=== PATIENT | female | born 1970 | race Caucasian/White ===

== ENCOUNTER → 2016-12-04 | Outpatient (CLI) | payer BC ==
--- NOTE | 2016-12-04 21:24 | CONS ---
CONSULTATION DATE OF SERVICE: 12/04/2016 A 46-year-old lady has been evaluated in the sleep center for possible obstructive sleep apnea-hypopnea syndrome. HISTORY OF PRESENT ILLNESS, SLEEP-WAKE EVALUATION: Patient's usual sleep schedule on working days from 9:30 p.m. to 6:00 a.m., on weekends from around 10:00 p.m. until 6:00 a.m., 6:30 a.m. No problems with falling asleep, although currently she is watching TV in bedroom. She sleeps in different position. She may wake up from sleep with dry mouth and she knows that she sleeps with open mouth. She snores, may wake up from sleep with headaches occasionally. In the morning she wakes up tired, has problems with concentration, irritability, anxiety, sexual dysfunction. [place] Sleepiness Scale is 5. PAST MEDICAL HISTORY: Positive for headaches usually on the back of the head, iron deficiency after lap-band surgery. PAST SURGICAL HISTORY: Cholecystectomy, panniculectomy, lap-band surgery in 2002. REVIEW OF SYSTEMS: After lap band surgery, patient lost about 120 pounds, but then gained again about 40 pounds. Total change of weight down about 80 pounds. Awakenings from sleep, sometimes tiredness during the day. Sometimes she may take naps on the weekend. MEDICATIONS: 1. Pamelor. 2. Out of counter iron supplement. SOCIAL HISTORY: Negative for smoking. Alcohol consumption rarely. FAMILY HISTORY: Hypertension, heart problems, diabetes, anemia, mental illness. PHYSICAL EXAMINATION: GENERAL: A 46-year-old lady without distress VITAL SIGNS: BP 126/91, HR 110, respirations 16, height 5 feet 8 inches, weight 190, BMI 28.8. Neck 14-3/4 inches in circumference, temperature 97.1, oxygen saturation at room air 99%. HEENT: PERRLA, EOMI, evaluation of oropharynx showed tongue protrudes midline, retrognathia about 5 mm, big tonsils. Slight restriction of nasal breathing. NECK: Supple, no JVD. Thyroid is not palpable. LUNGS: Clear to percussion and to auscultation. Good air exchange. No wheezing or rhonchi. HEART: S1, S2 regular. No murmurs, gallops, or rubs. ABDOMEN: slightly obese, soft and nontender. Bowel sounds are present. No organomegaly appreciated. EXTREMITIES: No clubbing or cyanosis. CHANGE ADVISOR: Awake, alert, and oriented X3. Cranial nerves 2 to 7 intact. There is no fasciculation or atrophy. noted. No focal deficits observed. IMPRESSION: 1. Snoring, awakenings from sleep, big tonsils, some restriction of nasal breathing, obstructive sleep apnea-hypopnea syndrome. 2. Headaches. 3. Status post lap-band surgery with total losing about 80 pounds of weight. 4. Iron deficiency. 5. Status post cholecystectomy. 6. Status post panniculectomy. PLAN: 1. Polysomnography for evaluation of patient's breathing during sleep. 2. CPAP/BiPAP titration if sleep study confirms obstructive sleep apnea-hypopnea syndrome. 3. Preferable position during sleep on the side. 4. No driving if patient feels any sleepiness. Patient is aware of civil and criminal liability for unsafe driving. 5. I will see patient for follow up visit to explain results of testing and following plan. 6. Thank you very much for referring this patient for consultation. Sincerely, Lorenzo Morrison MD, PhD, FAASM Diplomat of [employer] Social Work Specialist of [facility] [place] MMODL / IJN: [id number] /
== END | disposition home or self-care (01) ==
LOC: SLEEP 16:27
PROVIDERS: ATTEND Internal Medicine
DX: G47.33 Obstructive sleep apnea (adult) (pediatric) (principal); E61.1 Iron deficiency; Z90.49 Acquired absence of other specified parts of digestive tract; Z98.84 Bariatric surgery status; Z79.899 Other long term (current) drug therapy; Z98.890 Other specified postprocedural states

== ENCOUNTER → 2023-01-17 | Outpatient (CLI) | payer OTHER ==
--- NOTE | 2023-01-18 11:50 | MR ---
EXAMINATION TYPE: MR abdomen wo/w con DATE OF EXAM: 01/17/2023 10:00 AM CLINICAL INDICATION:Female, 52 years old with history of C18.7 MALIGNANT NEOPLASM OF SIGMOID COLON; P HH, Colon Cancer, Tumor removed from colon 2022 COMPARISON: CT 11/28/2022 and 11/10/2022 Pet/CT 12/31/2022 at [facility] TECHNIQUE: Multiplanar multi-sequence imaging was performed without contrast. Post contrast imaging was performed. Post IV contrast subtraction images were also submitted for review. IV Contrast: 7 cc Gadobutrol FINDINGS: LOWER CHEST: Visualized right chest wall susceptibility artifact in the left anterior abdominal wall artifact. ABDOMEN Liver: Respiratory motion limits evaluation. When comparing to prior PET/CT the area within the cauda te lobe within the liver of increased radiotracer uptake present family correlate with lesion on an i maging. There are other lesions scattered throughout the liver. Lesions may have have subtle uptake. Scattered lesions are seen throughout the liver at least 5 up to 12 mm and right hepatic lobe and up tor 10 mm in the left hepatic lobe. These are intermediate to high T2 signal and demonstrate peripher al enhancement on postcontrast imaging. Gallbladder and Bile ducts: No evidence for ductal dilation, or biliary stricture or evidence of chol edocholithiasis. The gallbladder is within normal limits. Pancreas: No ductal dilation. No evidence for solid mass. Spleen: Normal for size. Adrenal glands: Unremarkable. Kidneys: No evidence for obstructive uropathy. No suspicious renal masses. Stomach and Bowel: No evidence for bowel wall thickening or evidence for obstruction. Gastric lap ban d is present. Peritoneum: No evidence of pneumoperitoneum. There is loculated fluid collection the right abdomen p osterior to the colon that extends towards the liver measuring 6.0 x 2.8 x 7.0 cm. Vasculature: No aortic aneurysm. Musculoskeletal: The osseous structures appear intact. Lymph Nodes: No gross evidence for lymphadenopathy. Abdominal wall: Postsurgical changes to the anterior abdominal wall in the left colostomy. IMPRESSION: 1. Multiple lesions are seen throughout the liver suspicious for metastatic disease in the setting o f malignancy. These lesions are not appreciated on prior CT imaging 11/28/2022 and 11/10/2022. These m ay have been faintly metabolically active compared to background liver. Areas along the right liver d ome and near the caudate lobe favored represent focal inflammation from fluid collection in the right paracolic gutter possibly relating to infected seroma/abscess along the liver capsule with misregist ration due to respiratory motion. 2. There is postsurgical change with colostomy present. 3. Organizing fluid collection along the right paracolic gutter could represent postop seroma given patient's history of surgery. Correlate for signs and symptoms of infection to rule out underlying ab scess.
== END | disposition home or self-care (01) ==
LOC: RADMRIMAIN 08:41
PROVIDERS: ATTEND Internal Medicine Hematology & Oncology
DX: C18.7 Malignant neoplasm of sigmoid colon (principal); K76.89 Other specified diseases of liver; K66.8 Other specified disorders of peritoneum; Z93.3 Colostomy status
CPT/HCPCS: 74183; A9585

== ENCOUNTER 2023-02-10 22:06 | Inpatient (IN) | payer OTHER ==
--- NOTE | 2023-02-10 22:57 | ED ---
Fever HPI - General Source: patient Mode of arrival: ambulatory Limitations: no limitations <Gagan Marques - Last Filed: 02/10/23 22:57> <Mehrdad Humphrey - Last Filed: 02/11/23 03:18> - General Chief Complaint: Fever Stated Complaint: Fever-chemo Time Seen by Provider: 02/10/23 22:56 - History of Present Illness Initial Comments: 52-year-old female with a past medical history significant for colon cancer on chemotherapy presenting to the ED with a chief complaint of fever. (Gagan Marques) 52-year-old female currently undergoing chemotherapy for colon cancer presents with fever which began today. Patient is on a continuous IV infusion of chemotherapy. She has contacted the oncologist who recommended she present to the emergency department. No upper respiratory symptoms. No urinary symptoms. No pain complaints. (Mehrdad Humphrey) - Related Data Allergies Allergy/AdvReac Type Severity Reaction Status Date / Time Penicillins Allergy Unknown Verified 02/10/23 22:16 amoxicillin AdvReac Unknown Verified 02/10/23 22:16 Review of Systems ROS Other: All systems not noted in ROS Statement are negative. <Gagan Marques - Last Filed: 02/10/23 22:57> ROS Other: All systems not noted in ROS Statement are negative. <Mehrdad Humphrey - Last Filed: 02/11/23 03:18> ROS Statement: Those systems with pertinent positive or pertinent negative responses have been documented in the HPI. Past Medical History Additional Past Medical History / Comment(s): cholosstomy, colon cancer <Gagan Marques - Last Filed: 02/10/23 22:57> General Exam Limitations: no limitations <Gagan Marques - Last Filed: 02/10/23 22:57> General appearance: alert, in no apparent distress Head exam: Present: atraumatic, normocephalic Eye exam: Present: normal appearance, PERRL ENT exam: Present: normal exam Neck exam: Present: normal inspection. Absent: tenderness, meningismus Respiratory exam: Present: normal lung sounds bilaterally. Absent: respiratory distress, wheezes Cardiovascular Exam: Present: normal rhythm, tachycardia GI/Abdominal exam: Present: soft. Absent: distended, tenderness Neurological exam: Present: alert, oriented X3, CN II-XII intact. Absent: motor sensory deficit Psychiatric exam: Present: normal affect, normal mood Skin exam: Present: warm, dry, intact. Absent: cyanosis, diaphoretic <Mehrdad Humphrey - Last Filed: 02/11/23 03:18> - General Exam Comments Initial Comments: Visual Physical Exam Vital signs reviewed General: Well-appearing, nontoxic, no acute distress. Head: Normocephalic, atraumatic Eyes: PERRLA, EOMI ENT: Airway patent Chest: Nonlabored breathing Skin: No visual rash, normal skin tone Neuro: Alert and oriented 3 Musculoskeletal: No gross abnormalities (Gagan Marques) Course Vital Signs 02/10/23 02/10/23 02/10/23 22:13 23:50 23:56 Temperature 100.3 F H 99.2 F Pulse Rate 139 H 118 H Respiratory 22 18 Rate Blood Pressure 137/83 154/77 O2 Sat by Pulse 93 L 97 Oximetry 02/11/23 01:13 Temperature Pulse Rate 99 Respiratory 18 Rate Blood Pressure 115/82 O2 Sat by Pulse 97 Oximetry Medical Decision Making <Gagan Marques - Last Filed: 02/10/23 22:57> - Lab Data Result diagrams: 02/10/23 23:11 02/10/23 23:11 <Mehrdad Humphrey - Last Filed: 02/11/23 03:18> - Medical Decision Making Quicknote portion performed. Signed Gagan Marques PA-C (Gagan Marques) Was pt. sent in by a medical professional or institution ([facility] Lee, UI DEVELOPER [employer], urgent care, hospital, or snf...) When possible be specific @ -Sent in by oncologist for evaluation of fever. Did you speak to anyone other than the patient for history (EMS, parent, family, police, friend...)? What history was obtained from this source @ -No Did you review nursing and triage notes (agree or disagree)? Why? @ -I reviewed and agree with nursing and triage notes Were old charts reviewed (outside hosp., previous admission, EMS record, old EKG, old radiological studies, urgent care reports/EKG's, snf records)? Report findings @ -No old charts were reviewed Differential Diagnosis (chest pain, altered mental status, abdominal pain women, abdominal pain men, vaginal bleeding, weakness, fever, dyspnea, syncope, headache, dizziness, GI bleed, back pain, seizure, CVA, palpatations, mental health, musculoskeletal)? @ -Differential Fever: Pneumonia, viral URI, endocarditis, myocarditis, pericarditis, otitis, sinusitis, peritonsillar Abscess, retropharyngeal Abscess, epiglottitis, peritonitis, appendicitis, Ruth cystitis, diverticulitis, hepatitis, colitis, UTI, PID, TOA, pyelonephritis, prostatitis, epididymitis, meningitis, encephali tis, pulmonary embolism, CVA, thyroid storm, pancreatitis, adrenal crisis, cavernous sinus thrombosis, this is not meant to be an all-inclusive list. EKG interpreted by me (3pts min.). @ -As above X-rays interpreted by me (1pt min.). @ -[Chest x-ray shows right sided effusion, possible atelectasis or developing pneumonia CT interpreted by me (1pt min.). @ -None done U/S interpreted by me (1pt. min.). @ -None done What testing was considered but not performed or refused? (CT, X-rays, U/S, labs)? Why? @ -None What meds were considered but not given or refused? Why? @ -None Did you discuss the management of the patient with other professionals (professionals i.e. , PA, UI DEVELOPER [employer], lab, RT, psych nurse, criminal justice social worker, group art supervisor, teacher, chief diversity officer, case management coordinator)? Give summary @ -EMH Was smoking cessation discussed for >3mins.? @ -No Was critical care preformed (if so, how long)? @ -No Were there social determinants of health that impacted care today? How? (Homelessness, low income, unemployed, alcoholism, drug addiction, transportation, low edu. Level, literacy, decrease access to med. care, group home, rehab)? @ -No Was there de-escalation of care discussed even if they declined (Discuss DNR or withdrawal of care, Hospice)? DNR status @ -No What co-morbidities impacted this encounter? (DM, HTN, Smoking, COPD, CAD, Cancer, CVA, ARF, Chemo, Hep., AIDS, mental health diagnosis, sleep apnea, morbid obesity)? @ -[On chemotherapy for colon cancer. Was patient admitted / discharged? Hospital course, mention meds given and route, prescriptions, significant lab abnormalities, going to OR and other per tinent info. @ -[22-year-old female on chemo for colon cancer presenting with fever. Patient does have mild dyspnea but denies cough. Chest x-ray shows concern for right-sided pleural effusion this may be parapneumonic. She has normal white blood cell count without neutropenia. Viral panel is negative, urinalysis is negative. She has a lactic acid which is elevated this is treated with IV fluid. She started on broad-spectrum antibiotics and she is admitted with oncology on consult. Patient does have a mild transaminitis but does not have any abdominal pain or tenderness. Undiagnosed new problem with uncertain prognosis? @ -No Drug Therapy requiring intensive monitoring for toxicity (Heparin, Nitro, Insulin, Cardizem)? @ -No Were any procedures done? @ -No Diagnosis/symptom? @ -[Fever, pneumonia Acute, or Chronic, or Acute on Chronic? @ -[acute Uncomplicated (without systemic symptoms) or Complicated (systemic symptoms)? @ -[complicated Side effects of treatment? @ -No Exacerbation, Progression, or Severe Exacerbation? @ -No Poses a threat to life or bodily function? How? (Chest pain, [place], [place], pneumonia, PE, COPD, DKA, ARF, appy, cholecystitis, CVA, Diverticulitis, Homicidal, Suicidal, threat to staff... and all critical care pts) @ -[yes, sepsis (Mehrdad Humphrey) - Lab Data Lab Results 02/10/23 02/10/23 02/10/23 Range/Units 23:11 23:11 23:11 WBC 4.7 (3.8-10.6) k/uL RBC 4.36 (3.80-5.40) m/uL Hgb 12.2 (11.4-16.0) gm/dL Hct 37.7 (34.0-46.0) % MCV 86.4 (80.0-100.0) fL MCH 27.9 (25.0-35.0) pg MCHC 32.3 (31.0-37.0) g/dL RDW 16.1 H (11.5-15.5) % Plt Count 205 (150-450) k/uL MPV 8.2 Neutrophils % 89 % Lymphocytes % 4 % Monocytes % 5 % Eosinophils % 1 % Basophils % 0 % Neutrophils # 4.1 (1.3-7.7) k/uL Lymphocytes # 0.2 L (1.0-4.8) k/uL Monocytes # 0.2 (0-1.0) k/uL Eosinophils # 0.1 (0-0.7) k/uL Basophils # 0.0 (0-0.2) k/uL Hypochromasia Slight Anisocytosis Slight PT 10.5 (10.0-12.5) sec INR 0.9 (<1.2) APTT 22.0 (22.0-30.0) sec Sodium (137-145) mmol/L Potassium (3.5-5.1) mmol/L Chloride (98-107) mmol/L Carbon Dioxide (22-30) mmol/L Anion Gap mmol/L BUN (7-17) mg/dL Creatinine (0.52-1.04) mg/dL Est GFR (CKD-EPI)AfAm (>60 ml/min/1.73 sqM) Est GFR (CKD-EPI)NonAf (>60 ml/min/1.73 sqM) Glucose (74-99) mg/dL Lactic Ac Sepsis Rflx Plasma Lactic Acid Triston (0.7-2.0) mmol/L Calcium (8.4-10.2) mg/dL Magnesium (1.6-2.3) mg/dL Total Bilirubin (0.2-1.3) mg/dL AST (14-36) U/L ALT (4-34) U/L Alkaline Phosphatase (38-126) U/L Total Protein (6.3-8.2) g/dL Albumin (3.5-5.0) g/dL Urine Color Light Yellow Urine Appearance Clear (Clear) Urine pH 5.5 (5.0-8.0) Ur Specific [place] 1.015 (1.001-1.035) Urine Protein Negative (Negative) Urine Glucose (UA) Negative (Negative) Urine Ketones Negative (Negative) Urine Blood Negative (Negative) Urine Nitrite Negative (Negative) Urine Bilirubin Negative (Negative) Urine Urobilinogen <2.0 (<2.0) mg/dL Ur Leukocyte Esterase Negative (Negative) Influenza Type A (PCR) (Not Detectd) Influenza Type B (PCR) (Not Detectd) RSV (PCR) (Not Detectd) SARS-CoV-2 (PCR) (Not Detectd) 02/10/23 02/10/23 02/10/23 Range/Units 23:11 23:11 23:11 WBC (3.8-10.6) k/uL RBC (3.80-5.40) m/uL Hgb (11.4-16.0) gm/dL Hct (34.0-46.0) % MCV (80.0-100.0) fL MCH (25.0-35.0) pg MCHC (31.0-37.0) g/dL RDW (11.5-15.5) % Plt Count (150-450) k/uL MPV Neutrophils % % Lymphocytes % % Monocytes % % Eosinophils % % Basophils % % Neutrophils # (1.3-7.7) k/uL Lymphocytes # (1.0-4.8) k/uL Monocytes # (0-1.0) k/uL Eosinophils # (0-0.7) k/uL Basophils # (0-0.2) k/uL Hypochromasia Anisocytosis PT (10.0-12.5) sec INR (<1.2) APTT (22.0-30.0) sec Sodium 136 L (137-145) mmol/L Potassium 4.5 (3.5-5.1) mmol/L Chloride 104 (98-107) mmol/L Carbon Dioxide 18 L (22-30) mmol/L Anion Gap 14 mmol/L BUN 14 (7-17) mg/dL Creatinine 0.71 (0.52-1.04) mg/dL Est GFR (CKD-EPI)AfAm >90 (>60 ml/min/1.73 sqM) Est GFR (CKD-EPI)NonAf >90 (>60 ml/min/1.73 sqM) Glucose 190 H (74-99) mg/dL Lactic Ac Sepsis Rflx Plasma Lactic Acid Triston 3.4 H* (0.7-2.0) mmol/L Calcium 9.8 (8.4-10.2) mg/dL Magnesium 1.7 (1.6-2.3) mg/dL Total Bilirubin 0.4 (0.2-1.3) mg/dL AST 262 H (14-36) U/L ALT 183 H (4-34) U/L Alkaline Phosphatase 318 H (38-126) U/L Total Protein 8.2 (6.3-8.2) g/dL Albumin 4.3 (3.5-5.0) g/dL Urine Color Urine Appearance (Clear) Urine pH (5.0-8.0) Ur Specific [place] (1.001-1.035) Urine Protein (Negative) Urine Glucose (UA) (Negative) Urine Ketones (Negative) Urine Blood (Negative) Urine Nitrite (Negative) Urine Bilirubin (Negative) Urine Urobilinogen (<2.0) mg/dL Ur Leukocyte Esterase (Negative) Influenza Type A (PCR) Not Detected (Not Detectd) Influenza Type B (PCR) Not Detected (Not Detectd) RSV (PCR) Not Detected (Not Detectd) SARS-CoV-2 (PCR) Not Detected (Not Detectd) 02/11/23 Range/Units 00:08 WBC (3.8-10.6) k/uL RBC (3.80-5.40) m/uL Hgb (11.4-16.0) gm/dL Hct (34.0-46.0) % MCV (80.0-100.0) fL MCH (25.0-35.0) pg MCHC (31.0-37.0) g/dL RDW (11.5-15.5) % Plt Count (150-450) k/uL MPV Neutrophils % % Lymphocytes % % Monocytes % % Eosinophils % % Basophils % % Neutrophils # (1.3-7.7) k/uL Lymphocytes # (1.0-4.8) k/uL Monocytes # (0-1.0) k/uL Eosinophils # (0-0.7) k/uL Basophils # (0-0.2) k/uL Hypochromasia Anisocytosis PT (10.0-12.5) sec INR (<1.2) APTT (22.0-30.0) sec Sodium (137-145) mmol/L Potassium (3.5-5.1) mmol/L Chloride (98-107) mmol/L Carbon Dioxide (22-30) mmol/L Anion Gap mmol/L BUN (7-17) mg/dL Creatinine (0.52-1.04) mg/dL Est GFR (CKD-EPI)AfAm (>60 ml/min/1.73 sqM) Est GFR (CKD-EPI)NonAf (>60 ml/min/1.73 sqM) Glucose (74-99) mg/dL Lactic Ac Sepsis Rflx Y Plasma Lactic Acid [place]iston (0.7-2.0) mmol/L Calcium (8.4-10.2) mg/dL Magnesium (1.6-2.3) mg/dL Total Bilirubin (0.2-1.3) mg/dL AST (14-36) U/L ALT (4-34) U/L Alkaline Phosphatase (38-126) U/L Total Protein (6.3-8.2) g/dL Albumin (3.5-5.0) g/dL Urine Color Urine Appearance (Clear) Urine pH (5.0-8.0) Ur Specific [place] (1.001-1.035) Urine Protein (Negative) Urine Glucose (UA) (Negative) Urine Ketones (Negative) Urine Blood (Negative) Urine Nitrite (Negative) Urine Bilirubin (Negative) Urine Urobilinogen (<2.0) mg/dL Ur Leukocyte Esterase (Negative) Influenza Type A (PCR) (Not Detectd) Influenza Type B (PCR) (Not Detectd) RSV (PCR) (Not Detectd) SARS-CoV-2 (PCR) (Not Detectd) Disposition <Gagan Marques - Last Filed: 02/10/23 22:57> Is patient prescribed a controlled substance at d/c from ED?: No Time of Disposition: 03:17 <Mehrdad Humphrey - Last Filed: 02/11/23 03:18> Clinical Impression: Fever, Pneumonia Disposition: ADMITTED IP TO THIS HOSP Condition: Stable Referrals: Leon Mccormick [REFERRING] - 1-2 days
[2023-02-10] MEDS ORDERED: SODIUM CHLORIDE 0.9% 1,000 ML IV ONE (23:15)
[2023-02-10] MEDS ORDERED: ACETAMINOPHEN TAB 500 MG TAB PO STA (23:15)
[2023-02-10 23:30] LABS: Anisocytosis Slight; Basophils % (A) 0 %; Eosinophils # (A) 0.1 k/uL (0-0.7); Eosinophils % (A) 1 %; HCT 37.7 % (34.0-46.0); HGB 12.2 gm/dL (11.4-16.0); Hypochromasia Slight; Lymphocytes # (A) 0.2 k/uL (1.0-4.8); Lymphocytes % (A) 4 %; MCH 27.9 pg (25.0-35.0); MCHC 32.3 g/dL (31.0-37.0); MCV 86.4 fL (80.0-100.0); Mean Platelet Volume 8.2; Monocytes # (A) 0.2 k/uL (0-1.0); Monocytes % (A) 5 %; Neutrophils # (A) 4.1 k/uL (1.3-7.7); Neutrophils % (A) 89 %; Platelet Count 205 k/uL (150-450); RBC 4.36 m/uL (3.80-5.40); RDW 16.1 % (11.5-15.5); WBC 4.7 k/uL (3.8-10.6)
[2023-02-10 23:47] LABS: INR 0.9 (<1.2); Prothrombin Time 10.5 sec (10.0-12.5)
[2023-02-10 23:58] LABS: ALT 183 U/L (4-34); AST 262 U/L (14-36); African American GFR (CKD) >90 (>60 ml/min/1.73 sqM); Albumin 4.3 g/dL (3.5-5.0); Alkaline Phosphatase 318 U/L (38-126); Anion Gap 14 mmol/L; Blood Urea Nitrogen 14 mg/dL (7-17); Calcium 9.8 mg/dL (8.4-10.2); Carbon Dioxide 18 mmol/L (22-30); Chloride 104 mmol/L (98-107); Glucose 190 mg/dL (74-99); Magnesium 1.7 mg/dL (1.6-2.3); Non-African American GFR(CKD) >90 (>60 ml/min/1.73 sqM); Potassium 4.5 mmol/L (3.5-5.1); Sodium 136 mmol/L (137-145); Total Bilirubin 0.4 mg/dL (0.2-1.3); Total Protein 8.2 g/dL (6.3-8.2)
[2023-02-11 01:17] LABS: Appearance,Urine Clear (Clear); Bilirubin,Urine Negative (Negative); Blood,Urine Negative (Negative); Color,Urine Light Yellow; Glucose,Urine (UA) Negative (Negative); Ketones,Urine Negative (Negative); Leukocyte Esterase,Urine Negative (Negative); Nitrite,Urine Negative (Negative); PH, Urine 5.5 (5.0-8.0); Protein,Urine Negative (Negative); Specific Gravity,Urine 1.015 (1.001-1.035); Urobilinogen,Urine <2.0 mg/dL (<2.0)
[2023-02-11] MEDS ORDERED: CEFEPIME 2 GM in SODIUM CHLORIDE 0.9% 100 ML IVPB STA (01:43)
[2023-02-11] MEDS ORDERED: VANCOMYCIN IV PER PHARMACY 1 EACH MISC MISCELLANE PRN (01:43)
[2023-02-11] MEDS ORDERED: CEFEPIME 2 GM in SODIUM CHLORIDE 0.9% 100 ML IVPB ONE (01:46)
[2023-02-11] MEDS ORDERED: VANCOMYCIN 1,500 MG in SODIUM CHLORIDE 0.9% 500 ML 500 ML IVPB ONE (02:30)
--- NOTE | 2023-02-11 02:56 | XR ---
EXAM: XR Chest, 2 Views CLINICAL HISTORY: ITS.REASON XR Reason: fever TECHNIQUE: Frontal and lateral views of the chest. COMPARISON: No relevant prior studies available. FINDINGS: Lungs: Subsegmental right basilar airspace opacities. Elevated diaphragms, small lung volumes. Pleural space: Trace right pleural effusion suggested. No pneumothorax. Heart: Unremarkable. No cardiomegaly. Mediastinum: Unremarkable. Normal mediastinal contour. Bones/joints: Unremarkable. No acute fracture. Tubes, lines and devices: Right catheter tip projects at the SVC. Left upper quadrant gastric band, left upper quadrant port, with relative horizontal orientation of the gastric band. Upper abdomen: Right upper quadrant surgical clips, likely from prior cholecystectomy. IMPRESSION: 1. Probable right basilar atelectasis, possible developing pneumonia or aspiration pneumonitis with trace right parapneumonic effusion. 2. Relatively horizontal orientation of the gastric band, recommend comparison to postsurgical placement, possible prolapse.
[2023-02-11] MEDS ORDERED: NALOXONE 0.4 MG/ML 1 ML VIAL IV PRN (03:12)
[2023-02-11] MEDS: SODIUM CHLORIDE 0.9% 1,000 ML IV SCH ×2 (04:32→18:29)
[2023-02-11] MEDS ORDERED: ONDANSETRON 4 MG TAB PO PRN (10:16)
[2023-02-11] MEDS: CEFEPIME 2 GM in SODIUM CHLORIDE 0.9% 100 ML IVPB SCH ×2 (10:44→18:28)
--- NOTE | 2023-02-11 10:45 | P.HPIM ---
History of Present Illness This is a pleasant 52 years old female with past medical history of colon cancer status post colon resection surgery and colostomy in the left lower back done at [facility]. Patient states that she follows up with Dr. mtz but she hasn't seen him yet. She follows up with Dr. Batista and she supposed to get her chemotherapy currently where she started developing fever yesterday. Patient thinks it was 104.1 but not sure. She denies chills but she is complaining of from shortness of breath with no coughing or chest pain No change in urine or bowel habits. No dizziness weakness or numbness. She has mild headache. She denies smoking alcohol or illicit drugs On admission Vitas looks stable, she is saturating 98% on room air, heart rate is 102 Labs including CBC, INR, BMP and urinalysis were unremarkable AST 262, ALT 183. Bilirubin normal 0.4. Chest x-ray showing right lower lobe atelectasis versus early pneumonia by r adiologist I reviewed the chest x-ray by myself on Alex. Also there was possible prolapse of the band of the stomach. Original surgery was done with Dr. Jenkins, Dr. Lawson did surgical resection of the colon last time and she helped to clean the area around the gastric band. Review of Systems Review of systems CONSTITUTIONAL: No fever, no malaise, no fatigue. HEENT: No recent visual problems or hearing problems. Denied any sore throat. CARDIOVASCULAR: No orthopnea, PND, no palpitations, no syncope. PULMONARY: no cough, no hemoptysis. GASTROINTESTINAL: No diarrhea, no nausea, no vomiting, no abdominal pain. Normoactive bowel sounds. NEUROLOGICAL: No headaches, no weakness, no numbness. HEMATOLOGICAL: Denies any bleeding or petechiae. GENITOURINARY: Denies any burning micturition, frequency, or urgency. MUSCULOSKELETAL/RHEUMATOLOGICAL: Denies any joint pain, swelling, or any muscle pain. ENDOCRINE: Denies any polyuria or polydipsia. Past Medical History Additional Past Medical History / Comment(s): cholosstomy, colon cancer Medications and Allergies Home Medications Medication Instructions Recorded Confirmed Type Acetaminophen Tab [Tylenol Tab] 1,000 mg PO Q12H 02/11/23 02/11/23 History Ondansetron [Zofran] 4 mg PO Q4H PRN 02/11/23 02/11/23 History Allergies Allergy/AdvReac Type Severity Reaction Status Date / Time amoxicillin Allergy Rash/Hives Verified 02/11/23 07:19 Penicillins Allergy Rash/Hives Verified 02/11/23 07:19 Physical Exam Vitals: Vital Signs Temp Pulse Resp BP Pulse Ox 02/11/23 06:14 103 H 16 120/80 98 02/11/23 04:53 99.1 F 102 H 18 145/89 98 02/11/23 01:13 99 18 115/82 97 02/10/23 23:56 99.2 F 02/10/23 23:50 118 H 18 154/77 97 02/10/23 22:13 100.3 F H 139 H 22 137/83 93 L Intake and Output 02/10/23 02/11/23 02/11/23 22:59 06:59 14:59 Other: Weight 72.575 kg GENERAL: The patient is alert and oriented x3, not in any acute distress. Well developed, well nourished. HEENT: Pupils are round and equally reacting to light. EOMI. No scleral icterus. No conjunctival pallor. Normocephalic, atraumatic. No pharyngeal erythema. No thyromegaly. CARDIOVASCULAR: S1 and S2 present. No murmurs, rubs, or gallops. PULMONARY: Chest is clear to auscultation, no wheezing , no crackles. ABDOMEN: Soft, nontender, nondistended, normoactive bowel sounds. No palpable organomegaly. MUSCULOSKELETAL: No joint swelling or deformity. EXTREMITIES: No cyanosis, clubbing, or pedal edema. NEUROLOGICAL: Gross neurological examination did not reveal any focal deficits. SKIN: No rashes. no petechiae. Results CBC & Chem 7: 02/10/23 23:11 02/10/23 23:11 Labs: Abnormal Lab Results - Last 24 Hours (Table) 02/10/23 02/10/23 02/10/23 Range/Units 23:11 23:11 23:11 RDW 16.1 H (11.5-15.5) % Lymphocytes # 0.2 L (1.0-4.8) k/uL Sodium 136 L (137-145) mmol/L Carbon Dioxide 18 L (22-30) mmol/L Glucose 190 H (74-99) mg/dL Plasma Lactic Acid Triston 3.4 H* (0.7-2.0) mmol/L AST 262 H (14-36) U/L ALT 183 H (4-34) U/L Alkaline Phosphatase 318 H (38-126) U/L Assessment and Plan Assessment: Right lower lobe pneumonia, suspected gram-negative and need to cover MRSA Colon cancer status post surgical resection on chemotherapy Mild transaminitis Possible prolapse of the gastric band Plan: Continue with antibiotics cefepime and IV vancomycin Continue with normal saline 75 mL/h 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 Labs and medication were reviewed.. Continue same treatment. Continue with symptomatic treatment. Resume home medication. Monitor labs and vitals. DVT and GI prophylaxis. Further recommendations as per clinical course of the patient DVT prophylaxis: Subcutaneous heparin GI Prophylaxis: Pepcid PT/OT: Pending Prognosis is guarded
[2023-02-11] MEDS ORDERED: VANCOMYCIN 1,500 MG in SODIUM CHLORIDE 0.9% 500 ML 500 ML IVPB SCH (15:00)
[2023-02-11] MEDS: VANCOMYCIN 1,500 MG in SODIUM CHLORIDE 0.9% 500 ML 500 ML IVPB SCH (15:56)
[2023-02-11] MEDS: FAMOTIDINE 20 MG/2 ML VIAL IV SCH (21:24)
[2023-02-11] MEDS: HEPARIN SODIUM,PORCINE 5,000 UNIT/ML 1 ML VIAL SQ SCH (21:26)
--- NOTE | 2023-02-11 22:32 | P.CONS ---
History of Present Illness - Reason for Consult Consult date: 02/11/23 colon cancer Requesting physician: Mehrdad Humphrey - Chief Complaint fever - History of Present Illness Ms Stevens is a 52 year old female with a significant history of metastatic colon adenocarcinoma. She is a patient of Dr. Batista. She was initially seen in consult at [facility] on 11/13/22. The patient had been admitted 3 weeks prior with abdominal pain, and treated for diverticulitis. She had been having lower abdominal pain for the prior 2 month with associated nausea, vomiting, as well as sweats and decreased appetite . CT scan on 10/25/22 had shown wall thickening of the mid and distal descending colon with surrounding infiltrate change, felt to reflect diverticulitis versus nonspecific colitis. Neoplasm was not felt to be excluded. the patient presented again with progression of symptoms with repeat CT scan showed evidence of obstruction distal colon mass versus stricture, with evidence of perforation. No obvious metastatic disease was noted on either CT scan. The patient was taken to surgery on 11/12/22. The obstructing mass in the sigmoid colon appear to be attached to the iliopsoas muscle and adjacent ureter, and required dissection from the same. The patient had resection of this area, replacement of an ostomy. Pathology showed a 5 cm grade 2 adenocarcinoma T3, less than 1 mm from the circumferential margin that is the serosal surface. Th ere was seated perforation with no definite tumor content. / pericolic lymph nodes were involved with tumor deposits also present. Biopsy of the mesentery did not show any obvious tumor. She was staged as pT3N2b. PET scan on 12/31/22, revealing inflammatory type uptake in the incision line, as well as uptake in a fluid collection adjacent to the liver and posterior to the uterus. There was also uptake noted in borderline lymph nodes in the retroperitoneum. These findings were felt to be more likely inflammatory. However 2 areas of uptake in the liver, and the hepatic dome, and the caudate lobe were felt to be more suspicious for possible metastasis. She was recommended systemic luis motherapy with adjuvant FOLFOX. Completing cycle 2 on 02/10/23. Patient presented to the emergency room with complaints of fever. Tmax at home was 102.4. Upon presentation temperature was 100.3. Patient was also reporting shortness of breath over the last 1 day. Denies cough. Denies nausea vomiting diarrhea. UA negative. RSV, COVID, influenza negative. Blood cultures pending. Chest x-ray suspicious for pneumonia. IV antibiotics started. CBC revealed WBC 4.7, hemoglobin 12.2, platelets 205,000. Lactic acid elevated upon admission at 3.4, now at 1.8. LFTs elevated. Bilirubin normal at 0.4. Review of Systems 10 point ROS is negative except as stated in the HPI Past Medical History Additional Past Medical History / Comment(s): cholosstomy, colon cancer Medications and Allergies Home Medications Medication Instructions Recorded Confirmed Type Acetaminophen Tab [Tylenol Tab] 1,000 mg PO Q12H 02/11/23 02/11/23 History Ondansetron [Zofran] 4 mg PO Q4H PRN 02/11/23 02/11/23 History Allergies Allergy/AdvReac Type Severity Reaction Status Date / Time amoxicillin Allergy Rash/Hives Verified 02/11/23 07:19 Penicillins Allergy Rash/Hives Verified 02/11/23 07:19 Physical Exam Vitals: Vital Signs Temp Pulse Pulse Resp BP BP Pulse Ox 02/11/23 18:05 79 18 02/11/23 18:04 98.2 F 79 18 130/80 95 02/11/23 11:25 94 18 134/77 99 02/11/23 06:14 103 H 16 120/80 98 02/11/23 04:53 99.1 F 102 H 18 145/89 98 02/11/23 01:13 99 18 115/82 97 02/10/23 23:56 99.2 F 02/10/23 23:50 118 H 18 154/77 97 02/10/23 22:13 100.3 F H 139 H 22 137/83 93 L Intake and Output 02/11/23 02/11/23 02/11/23 06:59 14:59 22:59 Other: Voiding Method Toilet - Constitutional General appearance: average body habitus, no acute distress - EENT Eyes: anicteric sclerae, EOMI ENT: hearing grossly normal - Respiratory Respiratory: right: rales (mild rales RLL) - Cardiovascular Rhythm: regular Heart sounds: normal: S1, S2 - Gastrointestinal General gastrointestinal: soft, no tenderness - Integumentary Integumentary: no cyanotic - Neurologic grossly intact - Musculoskeletal Musculoskeletal: strength equal bilaterally - Psychiatric Psychiatric: A&O x's 3 Results CBC & Chem 7: 02/10/23 23:11 02/10/23 23:11 Labs: Abnormal Lab Results - Last 24 Hours (Table) 02/10/23 02/10/23 02/10/23 Range/Units 23:11 23:11 23:11 RDW 16.1 H (11.5-15.5) % Lymphocytes # 0.2 L (1.0-4.8) k/uL Sodium 136 L (137-145) mmol/L Carbon Dioxide 18 L (22-30) mmol/L Glucose 190 H (74-99) mg/dL Plasma Lactic Acid Triston 3.4 H* (0.7-2.0) mmol/L AST 262 H (14-36) U/L ALT 183 H (4-34) U/L Alkaline Phosphatase 318 H (38-126) U/L Chest x-ray: report reviewed Assessment and Plan (1) Colon adenocarcinoma Current Visit: Yes Status: Acute Priority: High Code(s): C18.9 - MALIGNANT NEOPLASM OF COLON, UNSPECIFIED SNOMED Code(s): 306562293 (2) Fever Current Visit: Yes Status: Acute Priority: High Code(s): R50.9 - FEVER, UNSPECIFIED SNOMED Code(s): 917833545 (3) Pneumonia Current Visit: Yes Status: Acute Priority: High Code(s): J18.9 - PNEUMONIA, UNSPECIFIED ORGANISM SNOMED Code(s): 358354246 Plan: Pneumonia/Fever: -Presented with complaints of fever. Tmax at home was 102.4. Upon presentation temperature was 100.3. Patient was also reporting shortness of breath over the last 1 day. Denies cough. UA negative. RSV, COVID, influenza negative. Blood cultures pending. Chest x-ray suspicious for pneumonia. IV antibiotics started. CBC revealed WBC 4.7, hemoglobin 12.2, platelets 205,000. Lactic acid elevated upon admission at 3.4, now at 1.8. -Received cycle 2 FOLFOX yesterday, 5FU pump currently infusing. Will d/c pump Metastatic colon adenocarcinoma: -Full history in HPI -Received cycle 2 of FOLFOX on 02/10/23. 5FU pump still infusing, had clinic RN discontinue pump -Treatment will be on hold until patient acutely recovers. -Clinic f/u will be scheduled upon discharge
--- NOTE | 2023-02-11 22:32 | P.CONS ---
History of Present Illness - Reason for Consult Consult date: 02/11/23 - History of Present Illness Patient is a 52-year-old female with a past medical history significant for recent diagnosis of colon cancer in this patient who is status post resection with colostomy and has been started on chemotherapy through the right chest wall Mediport with a second chemo day before presentation to the hospital patient coming to the ER concerning for fever that started the day before presentation to the hospital, apparently The patient had temperature of 104 F at home patient did have some chills, the patient denies having any headache or URI symptoms patient denies having any chest pain occasional cough no sputum production some nausea but no vomiting no abdominal pain and denies any worsening output in her colostomy bag no urinary symptoms on arrival to the ER the patient did have a temperature of 100.3 F patient was tachycardic but not hypotensive or hypoxic white count of 4.7 creatinine 0.71 lactic acid was 3.4 does observe mildly elevated urine was negative influenza RSV COVID testing was negative patient did have a chest x-ray that was reported right basilar atelectasis possible developing pneumonia or aspiration pneumonitis patient was started on vancomycin and cefepime infectious disease was consulted for further management of antibiotic therapy Past Medical History Additional Past Medical History / Comment(s): cholosstomy, colon cancer Medications and Allergies Home Medications Medication Instructions Recorded Confirmed Type Acetaminophen Tab [Tylenol Tab] 1,000 mg PO Q12H 02/11/23 02/11/23 History Ondansetron [Zofran] 4 mg PO Q4H PRN 02/11/23 02/11/23 History Allergies Allergy/AdvReac Type Severity Reaction Status Date / Time amoxicillin Allergy Rash/Hives Verified 02/11/23 07:19 Penicillins Allergy Rash/Hives Verified 02/11/23 07:19 Physical Exam Vitals: Vital Signs Temp Pulse Resp BP Pulse Ox 02/11/23 06:14 103 H 16 120/80 98 02/11/23 04:53 99.1 F 102 H 18 145/89 98 02/11/23 01:13 99 18 115/82 97 02/10/23 23:56 99.2 F 02/10/23 23:50 118 H 18 154/77 97 02/10/23 22:13 100.3 F H 139 H 22 137/83 93 L Intake and Output 02/10/23 02/11/23 02/11/23 22:59 06:59 14:59 Other: Weight 72.575 kg Results CBC & Chem 7: 02/10/23 23:11 02/10/23 23:11 Labs: Abnormal Lab Results - Last 24 Hours (Table) 02/10/23 02/10/23 02/10/23 Range/Units 23:11 23:11 23:11 RDW 16.1 H (11.5-15.5) % Lymphocytes # 0.2 L (1.0-4.8) k/uL Sodium 136 L (137-145) mmol/L Carbon Dioxide 18 L (22-30) mmol/L Glucose 190 H (74-99) mg/dL Plasma Lactic Acid Triston 3.4 H* (0.7-2.0) mmol/L AST 262 H (14-36) U/L ALT 183 H (4-34) U/L Alkaline Phosphatase 318 H (38-126) U/L Assessment and Plan Plan: 1patient presented hospital with fever and this patient who do have a history of colon cancer on chemotherapy making her immunocompromised source possible pneumonia patient did have respiratory symptoms and evidence of infiltrate on the chest x-ray we will need to call for resistant gram-positive as well as gram-negative pathogen 2-we will try to obtain a sputum for Gram stain culture check a CRP and a procalcitonin 3-continue cefepime and vancomycin while watching his kidney function closely till the cultures are finalized We will follow on clinical condition and cultures to further adjust medication if needed Thank you for this consultation we will follow the patient along with you Dictation was produced using [employer] dictation software. please excuse any grammatical, word or spelling errors. Time with Patient: Greater than 30
[2023-02-12] MEDS: CEFEPIME 2 GM in SODIUM CHLORIDE 0.9% 100 ML IVPB SCH ×3 (00:48→17:10)
[2023-02-12] MEDS: VANCOMYCIN 1,500 MG in SODIUM CHLORIDE 0.9% 500 ML 500 ML IVPB SCH ×2 (00:49→13:11)
[2023-02-12] MEDS: SODIUM CHLORIDE 0.9% 1,000 ML IV SCH ×2 (06:34→20:47)
[2023-02-12 07:53] LABS: African American GFR (CKD) >90 (>60 ml/min/1.73 sqM); Anion Gap 8 mmol/L; Blood Urea Nitrogen 14 mg/dL (7-17); C Reactive Protein 6.2 mg/dL (<1.0); Calcium 8.5 mg/dL (8.4-10.2); Carbon Dioxide 19 mmol/L (22-30); Chloride 108 mmol/L (98-107); Glucose 100 mg/dL (74-99); Non-African American GFR(CKD) >90 (>60 ml/min/1.73 sqM); Sodium 135 mmol/L (137-145)
[2023-02-12] MEDS: HEPARIN SODIUM,PORCINE 5,000 UNIT/ML 1 ML VIAL SQ SCH ×2 (09:06→20:45)
[2023-02-12] MEDS: FAMOTIDINE 20 MG/2 ML VIAL IV SCH ×2 (09:06→20:45)
--- NOTE | 2023-02-12 18:07 | P.PN ---
Subjective Progress Note Date: 02/12/23 Principal diagnosis: Reason for follow-up is pneumonia Patient is a 52-year-old female with a past medical history significant for recent diagnosis of colon cancer in this patient who is status post resection with colostomy and has been started on chemotherapy through the right chest wall Mediport, present to the hospital with fever patient did have a chest x-ray with right basilar atelectasis possible developing pneumonia. On today's evaluation that is 02/12/2023 patient did have resolution of her fever and is afebrile this morning the patient is breathing comfortably on room air denies any chest pain or shortness with occasional cough no nausea vomiting no abdominal pain or diarrhea. Patient did have a creatinine 0.64 no CBC was done today cultures are currently pending Objective - Vital Signs Vital signs: Vital Signs Temp 98.0 F 02/12/23 11:38 Pulse 75 02/12/23 11:38 Resp 16 02/12/23 11:38 BP 145/85 02/12/23 11:38 Pulse Ox 97 02/12/23 11:38 FiO2 Intake & Output 02/11/23 02/12/23 02/12/23 18:59 06:59 18:59 Other: Voiding Method Toilet Toilet # Voids 2 - Exam GENERAL DESCRIPTION: Middle-age female lying in bed in no distress RESPIRATORY SYSTEM: Unlabored breathing , decreased breath sounds at bases HEART: S1 S2 regular rate and rhythm , ABDOMEN: Soft , no tenderness EXTREMITIES: No edema feet - Labs CBC & Chem 7: 02/10/23 23:11 02/12/23 07:30 Labs: Abnormal Lab Results - Last 24 Hours (Table) 02/12/23 02/12/23 Range/Units 07:30 07:30 Sodium 135 L (137-145) mmol/L Chloride 108 H (98-107) mmol/L Carbon Dioxide 19 L (22-30) mmol/L Glucose 100 H (74-99) mg/dL C-Reactive Protein 6.2 H (<1.0) mg/dL Procalcitonin 0.84 H (0.02-0.09) ng/mL Assessment and Plan (1) Penicillin allergy Current Visit: Yes Status: Acute Code(s): Z88.0 - ALLERGY STATUS TO PENICILLIN SNOMED Code(s): 67515565 (2) Fever Current Visit: Yes Status: Acute Priority: High Code(s): R50.9 - FEVER, UNSPECIFIED SNOMED Code(s): 564302151 (3) Pneumonia Current Visit: Yes Status: Acute Priority: High Code(s): J18.9 - PNEUMONIA, UNSPECIFIED ORGANISM SNOMED Code(s): 592846434 Plan: 1patient presented hospital with fever and this patient who do have a history of colon cancer on chemotherapy making her immunocompromised source possible pneumonia patient did have respiratory symptoms and evidence of infiltrate on the chest x-ray we will need to call for resistant gram-positive as well as gram-negative pathogen 2patient did have elevated CRP of 6.2 procalcitonin 0.84 sputum culture not collected. 3we will keep the patient on cefepime and vancomycin keeping in mind resolution of fever and clinical improvement and monitor clinical course closely Dictation was produced using [employer] dictation software. please excuse any grammatical, word or spelling errors. Time with Patient: Less than 30
[2023-02-12] MEDS: ACETAMINOPHEN TAB 325 MG TAB PO PRN (20:46)
--- NOTE | 2023-02-12 21:26 | P.PN ---
Subjective Progress Note Date: 02/12/23 Patient evaluated in the ER today pending bed on the medical floor. Fever has improved. Currently no shortness of breath. Remains on antibiotics with IV cefepime and IV vancomycin. ID following. Pending cultures. Review of Systems Constitutional: Denied any fatigue denied any fever. Cardio vascular: denied any chest pain, palpitations Gastrointestinal: denied any nausea, vomiting, diarrhea Pulmonary: Denied any shortness of breath cough Neurologic denied any new focal deficits All inpatient medications were reviewed and appropriate changes in these medications as dictated in the interval history and assessment and plan PHYSICAL EXAMINATION: GENERAL: The patient is alert and oriented x3, not in any acute distress. Well developed, well nourished. HEENT: Pupils are round and equally reacting to light. EOMI. No scleral icterus. No conjunctival pallor. Normocephalic, atraumatic. No pharyngeal erythema. No thyromegaly. CARDIOVASCULAR: S1 and S2 present. No murmurs, rubs, or gallops. PULMONARY: Chest is clear to auscultation, no wheezing or crackles. ABDOMEN: Soft, nontender, nondistended, normoactive bowel sounds. No palpable organomegaly. MUSCULOSKELETAL: No joint swelling or deformity. EXTREMITIES: No cyanosis, clubbing, or pedal edema. NEUROLOGICAL: Gross neurological examination did not reveal any focal deficits. SKIN: No rashes. Assessment and Plan Right lower lobe pneumonia community acquired on IV antibiotics with ID following. Cultures pending. Discussed incentive spirometer with patient states family will bring hers from home. Colon cancer status post surgical resection on chemotherapy Finished second round of chemotherapy on 02/10/2023 Mild transaminitis follow up CMP in the AM. Possible prolapse of the gastric band GI prophylaxis DVT prophylaxis Full Code The impression and plan of care has been dictated by Romi Lyons Nurse Practitioner as directed. Dr. Darin MD I have performed a history and physical examination and medical decision making of this patient, discussed the same with the dictator, and agree with the dictators assessment and plan as written, documented as a scribe. Based on total visit time, I have performed more than 50% of this visit. Objective - Vital Signs Vital signs: Vital Signs Temp 98.0 F 02/12/23 11:38 Pulse 75 02/12/23 11:38 Resp 16 02/12/23 11:38 BP 145/85 02/12/23 11:38 Pulse Ox 97 02/12/23 11:38 FiO2 Intake & Output 02/11/23 02/12/23 02/12/23 18:59 06:59 18:59 Intake Total 1325 Balance 1325 Weight 76 kg Intake: IV 625 Cefepime 2 gm In Sodium 100 Chloride 0.9% 100 ml @ 25 mls/hr IVPB Q8H [facility] Rx#: [id number] Sodium Chloride 0.9% 1, 525 000 ml @ 75 mls/hr IV . [id number] [facility] Rx#:[id number] Oral 200 Lipid 500 Vancomycin 1,500 mg In 500 Sodium Chloride 0.9% 500 ml 500 ml @ 167 mls/hr IVPB Q12H [facility] Rx#: [id number] Other: Voiding Method Toilet Toilet # Voids 2 - Labs CBC & Chem 7: 02/10/23 23:11 02/12/23 07:30 Labs: Abnormal Lab Results - Last 24 Hours (Table) 02/12/23 02/12/23 Range/Units 07:30 07:30 Sodium 135 L (137-145) mmol/L Chloride 108 H (98-107) mmol/L Carbon Dioxide 19 L (22-30) mmol/L Glucose 100 H (74-99) mg/dL C-Reactive Protein 6.2 H (<1.0) mg/dL Procalcitonin 0.84 H (0.02-0.09) ng/mL Microbiology - Last 24 Hours (Table) 02/10/23 23:00 Blood Culture - Preliminary Blood 02/10/23 23:15 Blood Culture - Preliminary Blood Assessment and Plan Time with Patient: Less than 30
[2023-02-12] MEDS ORDERED: VANCOMYCIN TROUGH DUE 1 EACH MISC MISCELLANE ONE (23:00)
[2023-02-13] MEDS: VANCOMYCIN 1,500 MG in SODIUM CHLORIDE 0.9% 500 ML 500 ML IVPB SCH (00:38)
[2023-02-13] MEDS: CEFEPIME 2 GM in SODIUM CHLORIDE 0.9% 100 ML IVPB SCH ×2 (02:01→10:49)
[2023-02-13] MEDS: ACETAMINOPHEN TAB 325 MG TAB PO PRN (06:44)
[2023-02-13] MEDS: SODIUM CHLORIDE 0.9% 1,000 ML IV SCH (06:46)
[2023-02-13 07:14] LABS: Anisocytosis Slight; Basophils % (A) 1 %; Eosinophils # (A) 0.4 k/uL (0-0.7); Eosinophils % (A) 15 %; HGB 10.7 gm/dL (11.4-16.0); Hypochromasia Slight; Lymphocytes # (A) 0.9 k/uL (1.0-4.8); Lymphocytes % (A) 30 %; MCH 28.1 pg (25.0-35.0); MCHC 32.5 g/dL (31.0-37.0); MCV 86.7 fL (80.0-100.0); Mean Platelet Volume 8.1; Monocytes # (A) 0.1 k/uL (0-1.0); Monocytes % (A) 5 %; Neutrophils # (A) 1.4 k/uL (1.3-7.7); Neutrophils % (A) 48 %; Platelet Count 166 k/uL (150-450); RBC 3.81 m/uL (3.80-5.40); RDW 16.1 % (11.5-15.5); WBC 2.9 k/uL (3.8-10.6)
[2023-02-13 07:29] LABS: ALT 129 U/L (4-34); AST 68 U/L (14-36); African American GFR (CKD) >90 (>60 ml/min/1.73 sqM); Albumin 3.3 g/dL (3.5-5.0); Alkaline Phosphatase 207 U/L (38-126); Anion Gap 9 mmol/L; Blood Urea Nitrogen 8 mg/dL (7-17); Calcium 8.9 mg/dL (8.4-10.2); Carbon Dioxide 21 mmol/L (22-30); Chloride 108 mmol/L (98-107); Glucose 92 mg/dL (74-99); Non-African American GFR(CKD) >90 (>60 ml/min/1.73 sqM); Potassium 4.1 mmol/L (3.5-5.1); Sodium 138 mmol/L (137-145); Total Bilirubin 0.4 mg/dL (0.2-1.3); Total Protein 6.6 g/dL (6.3-8.2)
[2023-02-13] MEDS: FAMOTIDINE 20 MG/2 ML VIAL IV SCH (08:12)
[2023-02-13 08:15] VITALS: BP 146/92; PULSE 74; RESP 16; TEMP 97.8
[2023-02-13] MEDS: HEPARIN SODIUM,PORCINE 5,000 UNIT/ML 1 ML VIAL SQ SCH (08:49)
--- NOTE | 2023-02-13 09:02 | CDI ---
Documentation Clarification Form Date: 02/13/2023 07:35:21 AM From: Elise Dietrich RN CCDS Phone: [phone] Admit Date: 02/11/2023 03:12:00 AM Patient Name: Christie Stevens Visit Number: [id number] Discharge Date: ATTENTION: The Clinical Documentation Specialists (CDI) and [facility] Coding Staff appreciate your assistance in clarifying documentation. Please respond to the clarification below the line at the bottom and electronically sign. The CDI & [facility] Coding staff will review the response and follow-up if needed. Please note: Queries are made part of the Legal Health Record. If you have any questions, please contact the author of this message via ITS. Dr. Estela Webster Conflicting documentation has been found in the medical record. As attending physician, please provide clarification. Right lower lobe pneumonia, suspected gram negative and need to cover MRSA, 02/11, H&P. Right lower lobe pneumonia community acquired, 02/12, Medicine note. History/Risk Factors: 52-year-old Female being treated with chemotherapy for colon adenocarcinoma presented to ED with fever Tmax 102.4 at home and shortness of breath. Medical History: 11/12/2022 Colon resection with colostomy secondary to colon cancer. 02/11, Oncology consult. Clinical Indicators: VSS: 02/10 22:13 : B/P 137/83; HR 139; Temp 100.3F Oral; RR 22; SpO2 93% room air CXR, 02/11: Probable right basilar atelectasis, possible developing pneumonia or aspiration pneumonitis. Labs, 02/10: Wbc 4.7 Lymphocytes 0.2; Lactic acid 3.4 . Labs, 02/12: CRP 6.2, Procalcitonin 0.84 ID consult, 02/11: patient presented hospital with fever and this patient who do have a history of colon cancer on chemotherapy making her immunocompromised source possible pneumonia patient did have respiratory symptoms and evidence of infiltrate on the chest x-ray we will need to call for resistant gram-positive as well as gram-negative pathogen. Oncology consult, 02/11: Metastatic colon adenocarcinoma. Received cycle 2 of FOLFOX on 02/10/23. 5FU pump still infusing, had clinic RN discontinue pump. Treatment: 02/10 Tylenol 1,000mg PO x 1; 1/3 Cefepime 2gm IVPB x 1; Vancomycin 1,500mg IVPB x 1; 02/11 0.9NS IV 75cc/hr; 02/11 Vancomycin 1,500mg IVPB Q12H; ID consult and Oncology consults. Please clarify which diagnosis is most appropriate: [ ] Gram negative pneumonia [ x ] Community acquired pneumonia [ ] Other (please specify) [ ] Unable to determine (Template Last Revised: April 2020) MTDD
[2023-02-13] MEDS ORDERED: VANCOMYCIN 1,250 MG in SODIUM CHLORIDE 0.9% 250 ML IVPB SCH (14:00)
--- NOTE | 2023-02-15 15:22 | P.DS ---
Providers Date of admission: 02/11/23 03:12 Attending physician: Claudio Duff Consults: 02/11/23 03:12 Consult Physician Routine Consulting Provider: Curtis Batista Consult Reason/Comments: fever, on chemo Do you want consulting provider notified?: Yes 02/11/23 10:14 Consult Physician Urgent Consulting Provider: Marybel Rene Consult Reason/Comments: fever Do you want consulting provider notified?: Yes Primary care physician: Stated None Hospital Course: Final Diagnosis Right lower lobe pneumonia community acquired on IV antibiotics with ID following. Cultures pending. Discussed incentive spirometer with patient states family will bring hers from home. Colon cancer status post surgical resection on chemotherapy Finished second round of chemotherapy on 02/10/2023 Mild transaminitis follow up CMP in the AM. Possible prolapse of the gastric band needs to see general surgery outpatient Discharge Disposition Patient is stable for discharge home. Fever has improved no longer short of breath. ID recommending course of oral ceftin on discharge. Patient encouraged to continue with incentive spirometer 10 x an hour while awake. Patient to follow up with PCP Dr Leon MTZ and also follow up with Dr. Batista has an appt for 02/18/2023. She has also been referred to follow up with ID as needed. Repeat labs in 2 to 3 days. Hospital Course This is a pleasant 52 years old female with past medical history of colon cancer status post colon resection surgery and colostomy in the left lower back done at [facility]. Patient states that she follows up with Dr. mtz but she hasn't seen him yet. She follows up with Dr. Batista finished chemotherapy on thursday and subsequently began to develop fever. Patient thinks it was 104.1 but not sure. She denies chills but does report shortness of breath with no coughing or chest pain. No change in urine or bowel habits. No dizziness weakness or numbness. She has mild headache.She denies smoking alcohol or illicit drugs. On admission looks stable, she is saturating 98% on room air, heart rate is 102. Labs including CBC, INR, BMP and urinalysis were unremarkable AST 262, ALT 183. Bilirubin normal 0.4. Chest x-ray showing right lower lobe atelectasis versus early pneumonia Also there was possible prolapse of the band of the stomach. Original surgery was done with Dr. Jenkins, Dr. Lawson did surgical resection of the colon last time and she helped to clean the area around the gastric band. Patient was admitted to the hospital with consult placed to ID and started on empiric antibiotics. Cultures were taken which were negative. Shortness of breath and fever improved. Patient was cleared for discharge home on short course of oral ceftin. Patient did have midly elvated procal 0.84. Currently no shortness of breath lungs are clear, Alert x 3. Please see medication reconciliation for a list of current medications. Thank you for allowing us to participate in the care of this patient. The impression and plan of care has been dictated by Romi Lyons Nurse Practitioner as directed. Dr. Darin MD I have performed a history and physical examination and medical decision making of this patient, discussed the same with the dictator, and agree with the dictators assessment and plan as written, documented as a scribe. Based on total visit time, I have performed more than 50% of this visit. Patient Condition at Discharge: Stable Plan - Discharge Summary Discharge Rx Participant: No New Discharge Prescriptions: New cefUROXime axetiL [Ceftin] 500 mg PO BID 3 Days #6 tab Famotidine [Pepcid] 20 mg PO BID 5 Days #10 tablet Continue Ondansetron [Zofran] 4 mg PO Q4H PRN PRN Reason: Nausea Acetaminophen Tab [Tylenol] 1,000 mg PO Q12H Discharge Medication List Acetaminophen Tab [Tylenol] 1,000 mg PO Q12H 02/11/23 [History] Ondansetron [Zofran] 4 mg PO Q4H PRN 02/11/23 [History] Famotidine [Pepcid] 20 mg PO BID 5 Days #10 tablet 02/13/23 [Rx] cefUROXime axetiL [Ceftin] 500 mg PO BID 3 Days #6 tab 02/13/23 [Rx] Follow up Appointment(s)/Referral(s): Curtis Batista [STAFF PHYSICIAN] - 02/18/23 2:15 pm Leon Mtz [REFERRING] - 1-2 days (office close, please call for follow-up appointent.) Marybel Rene MD [STAFF PHYSICIAN] - 1 Week (please call for appointment, office currently closed.) Ambulatory/Diagnostic Orders: Complete Blood Count w/diff [LAB.AMB] Time Frame: 3 Days, Location: None Selected Comprehensive Metabolic Panel [LAB.AMB] Time Frame: 3 Days, Location: None Selected Patient Instructions/Handouts: Fever in Adults (ED), Community Acquired Pneumonia (DC) Activity/Diet/Wound Care/Special Instructions: Continue with incentive spirometer 10 x an hour while awake. Continue oral antibiotics for 3 more days with oral ceftin 500 mg twice a day. Follow up with your primary provider, oncology and Dr. Rene with infectious disease Discharge Disposition: HOME SELF-CARE
== END 2023-02-13 13:59 | disposition home or self-care (01) | DRG 139 ==
LOC: EC 22:06 → 3SCARD 02-11 03:12 → 5NMEDONC 02-11 12:16 → 1SOBS 02-12 12:24
PROVIDERS: ADMIT Hospitalist; ATTEND Hospitalist
DX: J18.9 Pneumonia, unspecified organism (principal); C18.9 Malignant neoplasm of colon, unspecified; C22.9 Malignant neoplasm of liver, not specified as primary or secondary; Z11.52 Encounter for screening for COVID-19; K95.09 Other complications of gastric band procedure; D84.9 Immunodeficiency, unspecified; Y84.8 Other medical procedures as the cause of abnormal reaction of the patient, or of later complication, without mention of misadventure at the time of the procedure; Z88.1 Allergy status to other antibiotic agents; Z88.0 Allergy status to penicillin; Z90.49 Acquired absence of other specified parts of digestive tract
CPT/HCPCS: 36415; 71046; 80048; 80053; 80202; 81003; 83605; 83735; 84145; 85025; 85610; 85730; 86140; 87040; 87449; 87636; 96361; 96365; 96366; 96367; 96368; 96372; 96374; 96375; 96376; 99285

== ENCOUNTER → 2023-04-03 | Outpatient (CLI) | payer OTHER ==
--- NOTE | 2023-04-05 09:59 | PE ---
EXAMINATION TYPE: PET CT fusion skull to thigh DATE OF EXAM: 04/03/2023 CLINICAL INDICATION:Female, 53 years old with history of C18.7 Colorectal Cancer; TECHNIQUE: Following the intravenous administration of 10.9 mCi of F-18 FDG, whole body images are performed from the skull base to the midthigh. Images are reviewed on the computer in the coronal, a xial, and sagittal planes. Reconstructed rotating images are created on independent workstation and reviewed on the computer. A non-contrast CT is performed in conjunction with the PET scan. Glucose level 94 mg/dL CT DLP: 588.19 mGycm, Automated exposure control for dose reduction was used. COMPARISON: CT None, PET/CT 12/31/2022, MRI 01/17/2023. FINDINGS: Mediastinal SUV mean is 2.1. Hepatic parenchyma SUV mean is 2.8. SKULL BASE AND NECK: No suspicious radiotracer activity. CHEST, MEDIASTINUM, AND HILAR REGION: No suspicious radiotracer activity. ABDOMEN AND PELVIS: * Heterogenous appearance of the liver on PET imaging. Scattered suspicious areas on MRI not definit ramón demonstrate uptake. A right hepatic lobe dome lesion max SUV 4.6 posteriorly to the right possibl y along the liver capsule and under the diaphragm. * Radiotracer uptake along the anterior abdominal wall max SUV up to 8.0 possibly along a hernia mes h repair. * Uptake right abdominal fluid collection near the Morison's pouch max SUV 14.0 inferiorly laterally previously 9.7. More inferiorly medially max SUV 13.1, previously 14.3. This has decreased in size n ow measuring 47 x 22 mm, 16 x 30 mm. * Focal uptake posterior to the uterus is a 66.9, previously 10.4. * Focal radiotracer uptake within the omentum max SUV 6.3, previously 9.8. MUSCULOSKELETAL STRUCTURES: No suspicious radiotracer activity. OTHER CT: Right chest wall [id number] with tip terminating in the superior vena cava. Gastric lap band with a flattened leg. The gallbladder surgically absent. Large amount stool in the right colon. Rectal stump with high density feces. IMPRESSION: Overall no definitive evidence for progression of disease. Small focal uptake posterior uterus has de crease in metabolic activity compared to prior. There is also decrease in mesenteric uptake along wit hin the anterior mesentery. There is suspected infection/inflammation along the anterior abdominal wa ll hernia mesh repair. Lastly Guerrero's pouch fluid collection possibly representing an abscess vers us with underlying malignancy not excluded however felt to be less likely. Continued attention on fol low-up imaging. No new areas of abnormal uptake identified.
== END | disposition home or self-care (01) ==
LOC: RADPETMAIN 06:25
PROVIDERS: ATTEND Internal Medicine Hematology & Oncology
DX: C18.7 Malignant neoplasm of sigmoid colon (principal); K31.89 Other diseases of stomach and duodenum
CPT/HCPCS: 78815; A9552

== ENCOUNTER 2023-06-03 19:08 | Emergency (ER) | payer OTHER ==
--- NOTE | 2023-06-03 19:44 | ED ---
Fall HPI - General Chief Complaint: Fall Stated Complaint: Fall-Facial lac Time Seen by Provider: 06/03/23 19:40 Source: patient, family, RN notes reviewed Mode of arrival: wheelchair - History of Present Illness Initial Comments: 53-year-old female presenting to the ED with a chief complaint of laceration. Patient notes a history of vertigo. States today had an episode of vertigo. States she was changing her ostomy bag in the bathroom and when she went to bend down, lost her balance and this caused her to collide with her glasses and reports that the post caused a laceration above her left eye. There is no LOC at this time. Following this she reports she fell down a few inches to the floor. Denied head injury. No other injuries at this time. No chest pains or shortness of breath. States that her episode of dizziness today was consistent with her history of vertigo. - Related Data Home Medications Medication Instructions Recorded Confirmed Acetaminophen Tab [Tylenol] 1,000 mg PO Q12H 02/11/23 02/11/23 Ondansetron [Zofran] 4 mg PO Q4H PRN 02/11/23 02/11/23 Previous Rx's Medication Instructions Recorded Famotidine [Pepcid] 20 mg PO BID 5 Days #10 tablet 02/13/23 cefUROXime axetiL [Ceftin] 500 mg PO BID 3 Days #6 tab 02/13/23 Allergies Allergy/AdvReac Type Severity Reaction Status Date / Time amoxicillin Allergy Rash/Hives Verified 02/11/23 07:19 Penicillins Allergy Rash/Hives Verified 02/11/23 07:19 Review of Systems ROS Statement: Those systems with pertinent positive or pertinent negative responses have been documented in the HPI. ROS Other: All systems not noted in ROS Statement are negative. Past Medical History Past Medical History: Cancer Additional Past Medical History / Comment(s): cholosstomy, colon cancer History of Any Multi-Drug Resistant Organisms: None Reported Past Surgical History: Cholecystectomy Additional Past Surgical History / Comment(s): colostomy november 2022 Past Anesthesia/Blood Transfusion Reactions: Postoperative Nausea & Vomiting (PONV) Past Psychological History: No Psychological Hx Reported Smoking Status: Never smoker Past Alcohol Use History: None Reported Past Drug Use History: None Reported - Past Family History Father Family Medical History: Congestive Heart Failure (CHF), Diabetes Mellitus Mother Family Medical History: Congestive Heart Failure (CHF), Diabetes Mellitus General Exam - General Exam Comments Initial Comments: Visual Physical Exam Vital signs reviewed General: Well-appearing, nontoxic, no acute distress. Eyes: PERRLA, EOMI ENT: Airway patent Chest: Nonlabored breathing Skin: No visual rash, normal skin tone Neuro: Alert and oriented 3 Musculoskeletal: No gross abnormalities Limitations: no limitations General appearance: alert, in no apparent distress Head exam: Present: other (No flores signs or raccoon's eyes. Approximately 4 cm laceration over the left orbit.) Eye exam: Present: PERRL, EOMI Neck exam: Present: normal inspection Respiratory exam: Present: normal lung sounds bilaterally Cardiovascular Exam: Present: regular rate GI/Abdominal exam: Present: soft Back exam: Present: other (No midline tenderness to palpation.) Neurological exam: Present: alert, oriented X3 Course Vital Signs 06/03/23 06/03/23 19:14 22:10 Temperature 97.5 F L 97.8 F Pulse Rate 89 90 Respiratory 16 18 Rate Blood Pressure 111/78 115/80 O2 Sat by Pulse 98 99 Oximetry Procedures - Procedures Initial comment: Argelia maneuver performed which patient reported significant improvement of dizziness following. - Laceration Laceration #1 Site: face Size (cm): 4 Description: linear Depth: simple, single layer Sedation/Analgesia: none Anesthetic Used: lidocaine 1%, with epi Anesthesia Technique: local infiltration Amount (mls): 3 Pre-repair: wound explored, irrigated extensively, deep structures intact Type of Sutures: nylon Size of Sutures: 6-0 Number of Sutures: 5 Technique: simple, interrupted Patient Tolerated Procedure: well, no complications Medical Decision Making - Medical Decision Making Quicknote portion performed. Signed Gagan Marques PA-C Was pt. sent in by a medical professional or institution ([facility], [facility] [employer], urgent care, hospital, or fdc...) When possible be specific @ -No Did you speak to anyone other than the patient for history (EMS, parent, family, police, friend...)? What history was obtained from this source @ -No Did you review nursing and triage notes (agree or disagree)? Why? @ -I reviewed and agree with nursing and triage notes Were old charts reviewed (outside hosp., previous admission, EMS record, old EKG, old radiological studies, urgent care reports/EKG's, fdc records)? Report findings @ -No old charts were reviewed Differential Diagnosis (chest pain, altered mental status, abdominal pain women, abdominal pain men, vaginal bleeding, weakness, fever, dyspnea, syncope, headache, dizziness, GI bleed, back pain, seizure, CVA, palpatations, mental health, musculoskeletal)? @ -Differential Musculoskeletal Muscular strain, contusion, ligament sprain, fracture, arthritis, septic arthritis, bursitis, cellulitis, muscle spasm, nerve compression, DVT, arterial occlusion, herpes zoster, electrolyte abnormality, tumor.... This is not meant to be in all inclusive list EKG interpreted by me (3pts min.). @ -None X-rays interpreted by me (1pt min.). @ -None done CT interpreted by me (1pt min.). @ -None done U/S interpreted by me (1pt. min.). @ -None done What testing was considered but not performed or refused? (CT, X-rays, U/S, labs)? Why? @ -CT brain was considered secondary to dizziness however patient reports that symptoms are consistent with her history of vertigo and would not like any additional testing at this time. What meds were considered but not given or refused? Why? @ -None Did you discuss the management of the patient with other professionals (professionals i.e. , PA, [employer], lab, RT, psych nurse, rn social services, futures trader, teacher, homicide squad commanding officer, block and case maker)? Give summary @ -No Was smoking cessation discussed for >3mins.? @ -No Was critical care preformed (if so, how long)? @ -No Were there social determinants of health that impacted care today? How? (Homelessness, low income, unemployed, alcoholism, drug addiction, transportation, low edu. Level, literacy, decrease access to med. care, custodial, rehab)? @ -No Was there de-escalation of care discussed even if they declined (Discuss DNR or withdrawal of care, Hospice)? DNR status @ -No What co-morbidities impacted this encounter? (DM, HTN, Smoking, COPD, CAD, Cancer, CVA, ARF, Chemo, Hep., AIDS, mental health diagnosis, sleep apnea, morbid obesity)? @ -Vertigo Was patient admitted / discharged? Hospital course, mention meds given and route, prescriptions, significant lab abnormalities, going to OR and other pertinent info. @ -Discharge 53-year-old female with a history of vertigo presenting after an episode of dizziness which caused her to collide with the corner of her glasses above her left eye causing laceration. This laceration was repaired. For further details please see procedure note. Tetanus updated. Patient at this time would not like any further testing to elucidate etiology of vertigo as this episode was consistent with history of vertigo. Patient did request Argelia maneuver be perf ormed. Patient had a Karin-Hallpike performed prior to the Argelia maneuver which showed a horizontal nystagmus on the right side. Patient proceeded to have Argelia maneuver performed which she reports is significantly improved dizziness. Discharged home in stable condition with referral to see ENT. Discussed return precautions with patient and significant other who verbalized agreement. Undiagnosed new problem with uncertain prognosis? @ -No Drug Therapy requiring intensive monitoring for toxicity (Heparin, Nitro, Insulin, Cardizem)? @ -No Were any procedures done? @ -Yes, laceration and Argelia maneuver. Diagnosis/symptom? @ -Vertigo, laceration Acute, or Chronic, or Acute on Chronic? @ -Acute Uncomplicated (without systemic symptoms) or Complicated (systemic symptoms)? @ -Uncomplicated Side effects of treatment? @ -No Exacerbation, Progression, or Severe Exacerbation? @ -No Poses a threat to life or bodily function? How? (Chest pain, [place], [place], pneumonia, PE, COPD, DKA, ARF, appy, cholecystitis, CVA, Diverticulitis, Homicidal, Suicidal, threat to staff... and all critical care pts) @ -No Disposition Clinical Impression: Fall, Vertigo, Laceration Disposition: HOME SELF-CARE Condition: Good Instructions (If sedation given, give patient instructions): Care For Your Stitches (ED), Vertigo (ED) Additional Instructions: Please return to the Emergency Department if symptoms worsen or any other concerns. Please return in 3 to 5 days for suture removal. Monitor for signs of infection including redness, warmth, swelling, fever. Is patient prescribed a controlled substance at d/c from ED?: No Referrals: Leon Mccormick [Primary Care Provider] - 1-2 days Jhoan Pelayo MD [STAFF PHYSICIAN] - 1-2 days Charles Bui MD [STAFF PHYSICIAN] - 1-2 days Time of Disposition: 21:56
[2023-06-03] MEDS: DIPH,PERTUS(ACELL)TETVAC-LF 0.5 ML VIAL IM ONE (21:07)
[2023-06-03] MEDS: BACITRACIN OINT 1 EACH PACKET TOPICAL ONE (21:08)
[2023-06-03 22:47] VITALS: BP 115/80; PULSE 90; RESP 18; TEMP 97.8
== END 2023-06-03 22:57 | disposition home or self-care (01) ==
LOC: EC 19:08
DX: S01.81XA Laceration without foreign body of other part of head, initial encounter (principal); R42 Dizziness and giddiness; Z23 Encounter for immunization; Z88.0 Allergy status to penicillin; W01.0XXA Fall on same level from slipping, tripping and stumbling without subsequent striking against object, initial encounter; Y92.002 Bathroom of unspecified non-institutional (private) residence as the place of occurrence of the external cause
CPT/HCPCS: 12013; 90471; 90715; 99283

== ENCOUNTER → 2023-08-20 | Outpatient (CLI) | payer OTHER ==
--- NOTE | 2023-08-22 13:19 | PE ---
EXAMINATION TYPE: PET CT fusion skull to thigh DATE OF EXAM: 08/20/2023 CLINICAL INDICATION:Female, 53 years old with history of C18.7 colon ca; TECHNIQUE: Following the intravenous administration of 11.76 mCi of F-18 FDG, whole body images are performed from the skull base to the midthigh. Images are reviewed on the computer in the coronal, axial, and sagittal planes. Reconstructed rotating images are created on independent workstation and reviewed on the computer. A non-contrast CT is performed in conjunction with the PET scan. Glucose level 96 mg/dL CT DLP: 346 mGycm, Automated exposure control for dose reduction was used. COMPARISON: CT None, PET/CT 04/02/2023, 12/31/2022, MRI: 01/17/2023 FINDINGS: Mediastinal SUV mean is 2.2. Hepatic parenchyma SUV mean is 2.8. SKULL BASE AND NECK: No suspicious radiotracer activity. CHEST, MEDIASTINUM, AND HILAR REGION: No suspicious radiotracer activity. ABDOMEN AND PELVIS: * Heterogenous appearance of the liver on PET imaging. Scattered suspicious areas on MRI now demonst rate mild FDG activity right lateral dome of the liver max SUV 6.7 previously 4.6. * Radiotracer uptake along the anterior abdominal wall possibly along a hernia mesh repair has sligh tly decreased in metabolic activity in the areas that were really high. The most prominent area of ab normal uptake is now right lower anterior intramuscular area max SUV 7.5, previously 6.2. * Uptake right abdominal fluid collection near the Morison's pouch max SUV 10.5, previously 11.6 * Focal uptake posterior to the uterus is a 5.5, previously 6.9, 10.4. * Focal radiotracer uptake within the omentum is not appreciated on today's exam. Previously max SUV 6.3, previously 9.8. MUSCULOSKELETAL STRUCTURES: No suspicious radiotracer activity. OTHER CT: Right chest wall [id number] with tip terminating in the superior vena cava. Gastric lap band with a flattened leg. The gallbladder surgically absent. Large amount stool in the right colon. Rectal stump with high density feces. IMPRESSION: 1. There is only mildly increased liver uptake in the liver not correlating with prior MRI lesions. Unclear whether this is a new true lesion. Consider follow-up MRI with IV contrast liver mass protoco l for comparison of liver lesions for progression. 2. Small focal uptake posterior uterus has decrease in metabolic activity compared to prior. 3. Omental uptake anteriorly no longer visualized.. 4. Decrease in infection/inflammation along the anterior abdominal wall hernia mesh repair. 5. Decrease in Guerrero's pouch fluid collection possibly resolving abscess versus less likely malig micah Continued attention on follow-up imaging.
== END | disposition home or self-care (01) ==
LOC: RADPETMAIN 08:43
PROVIDERS: ATTEND Internal Medicine Hematology & Oncology
DX: C18.7 Malignant neoplasm of sigmoid colon (principal); R16.0 Hepatomegaly, not elsewhere classified; K43.9 Ventral hernia without obstruction or gangrene; Z71.3 Dietary counseling and surveillance
CPT/HCPCS: 78815; A9552

== ENCOUNTER → 2023-09-09 | Outpatient (CLI) | payer OTHER ==
--- NOTE | 2023-09-11 11:01 | MR ---
EXAMINATION TYPE: MR liver wo/w con DATE OF EXAM: 09/09/2023 5:37 PM CLINICAL INDICATION:Female, 53 years old with history of C18.7 MALIGNANT NEOPLASM OF SIGMOID COLON; P HH, Colon cancer, follow up COMPARISON: Pet/CT 08/20/2023 TECHNIQUE: Multiplanar multi-sequence imaging was performed without contrast. Post contrast imaging was performed. Post IV contrast subtraction images were also submitted for review. IV Contrast: 7.5 cc Gadavist FINDINGS: LOWER CHEST: No gross irregularity. ABDOMEN Liver: No evidence for hepatic steatosis or cirrhosis. No lesion is identified in the area of concern on prior PET/CT. Findings favor artifact on prior PET. Gallbladder and Bile ducts: No evidence for ductal dilation, or biliary stricture or evidence of chol edocholithiasis. The gallbladder is within normal limits. Pancreas: No ductal dilation. No evidence for solid mass. Spleen: Normal for size. Adrenal glands: Unremarkable. Kidneys: No evidence for obstructive uropathy. No suspicious renal masses. Stomach and Bowel: No evidence for bowel wall thickening or evidence for obstruction. Left lower quad rant ostomy. Gastric lap band in appropriate position. Retroperitoneum/Peritoneum: No evidence of pneumoperitoneum or free fluid. Vasculature: No aortic aneurysm. Musculoskeletal: The osseous structures appear intact. Lymph Nodes: No gross evidence for lymphadenopathy. Abdominal wall: Postsurgical changes to the anterior normal wall with ostomy gastric lap band tubing. IMPRESSION: No definitive lesion seen in the area of concern from prior PET/CT on 08/19/2022. At this time the fin ding is felt to represent artifact.
== END | disposition home or self-care (01) ==
LOC: RADMRIMAIN 16:13
PROVIDERS: ATTEND Internal Medicine Hematology & Oncology
DX: C18.7 Malignant neoplasm of sigmoid colon (principal)
CPT/HCPCS: 74183; A9585